=== PATIENT | male | born 1950 ===

== ENCOUNTER 2018-07-22 08:42 | Day surgery (SDC) | payer MEDICARE ==
[~2018-07-22] VITALS: Ht 185.4 cm; Wt 84.0 kg
[~2018-07-22 08:42] MED LIST: ASPI81EC PO; CEPH500 PO; SIMV20 PO
[2018-07-22] MEDS ORDERED: ERGO400 (09:48)
== END 2018-07-22 11:41 | disposition home or self-care (01) ==
LOC: ORSCSDS 08:42
PROVIDERS: Internal Medicine Gastroenterology
PROC: 0DBL8ZX Excision of Transverse Colon, Via Natural or Artificial Opening Endoscopic, Diagnostic (ICD-10-PCS; principal; 2018-07-22 10:00)
PROC: 0DBK8ZX Excision of Ascending Colon, Via Natural or Artificial Opening Endoscopic, Diagnostic (ICD-10-PCS; principal; 2018-07-22 10:00)
DX: Z12.11 Encounter for screening for malignant neoplasm of colon (principal); D12.3 Benign neoplasm of transverse colon; D12.2 Benign neoplasm of ascending colon; K57.30 Diverticulosis of large intestine without perforation or abscess without bleeding; Z87.891 Personal history of nicotine dependence; Z79.82 Long term (current) use of aspirin; Z79.899 Other long term (current) drug therapy
CPT/HCPCS: 88305; J7120

== ENCOUNTER 2021-07-16 10:49 | Day surgery (SDC) | payer MEDICARE ==
[~2021-07-16] VITALS: Ht 185.4 cm; Wt 86.3 kg
[~2021-07-16 10:49] MED LIST changes: +ERGO400
[2021-07-16] MEDS ORDERED: Simvastatin20 MG PO (11:41)
[2021-07-16] MEDS ORDERED: SILD25T PO (11:42)
== END 2021-07-16 13:15 | disposition home or self-care (01) ==
LOC: ORSCSDS 10:49
PROVIDERS: Internal Medicine Gastroenterology
PROC: 0DJD8ZZ Inspection of Lower Intestinal Tract, Via Natural or Artificial Opening Endoscopic (ICD-10-PCS; principal; 2021-07-16 12:00)
DX: Z12.11 Encounter for screening for malignant neoplasm of colon (principal); Z86.010 Personal history of colon polyps; K57.30 Diverticulosis of large intestine without perforation or abscess without bleeding; K64.8 Other hemorrhoids; Z87.891 Personal history of nicotine dependence; Z79.82 Long term (current) use of aspirin; Z79.899 Other long term (current) drug therapy
CPT/HCPCS: J0461; J2405; J2704; J7120

== ENCOUNTER → 2021-12-01 | Outpatient (CLI) | payer MEDICARE ==
[~2021-12-01] MED LIST changes: +SILD25T PO; +Simvastatin20 MG PO
== END | disposition home or self-care (01) ==
LOC: LAB SHORT 07:49 → LAB 07:49
DX: L98.6 Other infiltrative disorders of the skin and subcutaneous tissue (principal)
CPT/HCPCS: 88305

== ENCOUNTER 2023-03-25 03:03 | Emergency (ER) | payer OTHER ==
[~2023-03-25] VITALS: Ht 185.4 cm; Wt 86.6 kg
[2023-03-25 03:52] LABS: Hematocrit 40.1 % (37.0-53.0); Hemoglobin 13.7 g/dL (13.5-17.5); Mean Corpuscular HGB 30.5 pg (26.0-34.0); Mean Corpuscular HGB Conc 34.2 g/dL (31.5-36.5); Mean Corpuscular Volume 89 fL (80-100); Mean Platelet Volume 11.5 fL (9.1-12.4); Platelet Count 276 K/mm3 (150-400); RDW Coefficient Variation 12.3 % (11.7-14.2); RDW Standard Deviation 40.3 fL (35.1-46.3); Red Blood Cell Count 4.49 M/mm3 (4.30-5.90); White Blood Cell Count 10.63 K/mm3 (4.00-11.30)
[2023-03-25 03:58] LABS: Source, Urine Clean Catch
[2023-03-25 04:03] LABS: Bilirubin, Urine Neg (Neg); Blood, Urine 2+ (Neg); Glucose Qualitative, Urine Neg (Neg); Ketones, Urine Neg (Neg); Leukocyte Esterase, Urine Neg (Neg); Nitrite, Urine Neg (Neg); Protein, Urine 1+ (Neg); Specific Gravity, Urine 1.025 (1.003-1.022); Urobilinogen, Urine NORM (Normal)
[2023-03-25 04:14] LABS: Albumin, Blood 3.6 g/dL (3.4-5.0); Albumin/Globulin Ratio 0.9 (0.8-1.8); Bilirubin, Total 0.3 mg/dL (0.1-1.0); Bun/Creatinine Ratio 19.4 (12.0-20.0); Creatinine, Blood 1.03 mg/dL (0.60-1.20); Globulin, Blood 3.9 g/dL (2.2-4.0); Potassium, Blood 3.5 mmol/L (3.5-5.5); Total Protein, Blood 7.5 g/dL (6.4-8.2)
[2023-03-25 04:23] LABS: Appearance, Urine Clear (Clear); Color, Urine Yellow (P-Yellow)
[2023-03-25 04:24] LABS: Bacteria Few /hpf; Red Blood Cells, Urine 0-2 /hpf (0-2); Squamous Epithelial Cells Few /hpf (Few); White Blood Cells, Urine 0-2 /hpf (0-5)
[2023-03-25 04:29] LABS: BASOPHILS PERCENT MAN 1 % (0-2); EOSINOPHILS ABSOLUTE MAN 0.31 K/mm3 (0.00-0.68); EOSINOPHILS PERCENT MAN 3 % (0-6); LYMPHOCYTES ABSOLUTE MAN 6.05 K/mm3 (0.84-5.20); LYMPHOCYTES PERCENT MAN 57 % (21-46); MONOCYTES ABSOLUTE MAN 0.85 K/mm3 (0.16-1.47); MONOCYTES PERCENT MAN 8 % (4-13); NEUTROPHILS ABSOLUTE MAN 3.29 K/mm3 (1.96-9.15); SEG NEUTROPHILS PERCENT MAN 31 % (41-73); TOTAL CELLS COUNTED 100
[2023-03-25] MEDS ORDERED: HYDR1TAB94 PO (05:32)
[2023-03-25] MEDS ORDERED: Ibuprofen600 MG PO (05:32)
[2023-03-25] MEDS ORDERED: TAMS.4ER PO (05:32)
[2023-03-25 05:48] VITALS: BP 142/70
== END 2023-03-25 05:55 | disposition home or self-care (01) ==
LOC: ER 03:03
PROVIDERS: Emergency Medicine
DX: N13.2 Hydronephrosis with renal and ureteral calculous obstruction (principal); E86.0 Dehydration; Z87.891 Personal history of nicotine dependence
CPT/HCPCS: 74177; 80053; 81001; 85025; 96361; 96374-59; 96375; 99284-25; A9270; J1885; J2270; J2405; J3010; J7030; Q9967

== ENCOUNTER 2024-07-05 09:48 | Day surgery (SDC) | payer OTHER ==
[~2024-07-05] VITALS: Ht 185.4 cm; Wt 87.2 kg
[~2024-07-05 09:48] MED LIST changes: +HYDR1TAB94 PO; +Ibuprofen600 MG PO; +Lactated Ringer's 1,000 ML IV ONE; +TAMS.4ER PO; +propofoL 50 ML IV ONE
[2024-07-05] MEDS ORDERED: Lactated Ringer's 1,000 ML IV ONE (11:06)
[2024-07-05 12:52] VITALS: BP 129/74
== END 2024-07-05 13:10 | disposition home or self-care (01) ==
LOC: ORSCSDS 09:48
PROVIDERS: Internal Medicine Gastroenterology
PROC: 0DBM8ZX Excision of Descending Colon, Via Natural or Artificial Opening Endoscopic, Diagnostic (ICD-10-PCS; principal; 2024-07-05 11:15)
PROC: 0DBL8ZX Excision of Transverse Colon, Via Natural or Artificial Opening Endoscopic, Diagnostic (ICD-10-PCS; principal; 2024-07-05 11:15)
DX: Z12.11 Encounter for screening for malignant neoplasm of colon (principal); Z86.0101 Personal history of adenomatous and serrated colon polyps; K63.5 Polyp of colon; K57.30 Diverticulosis of large intestine without perforation or abscess without bleeding; E78.5 Hyperlipidemia, unspecified; I45.10 Unspecified right bundle-branch block; Z79.899 Other long term (current) drug therapy
CPT/HCPCS: 88305; J2704; J7120